=== PATIENT | female | born 1970 | race Caucasian/White ===

== ENCOUNTER → 2018-07-06 | Outpatient (CLI) | payer OTHER, BC ==
[~2018-07-06] MED LIST: FLUO-202 PO; LOR5/325 PO; NOR5/325 PO; PENI-22 PO
--- NOTE | 2018-07-20 16:34 | RADIOLOGY IMAGING REPORT ---
FACILITY: [facility] - [place] PATIENT NAME: CHASTITY MARTINEZ : [id number] MR: [id number] V: [id number] EXAM DATE: ORDERING PHYSICIAN: AMY BRUNER TECHNOLOGIST: García Miranda RDMS, RDCS PROCEDURE:US BILATERAL BREAST COMPARISON:None. INDICATIONS:BILATERAL BREAST LUMPS/Mammogram demonstrating partially obscured masses in both breasts. FINDINGS: The Right breast demonstrates multiple anechoic lesions, the largest measuring over 3cm in greatest dimension. Several of the lesions are subcentimeter in size. The breast also demonstrates anechoic lesions with internal debris. The largest of these measures approximately 1.5cm. There is a hypoechoic lesions measuring 4mm in size. There is also a hypoechoic lesion with through transmission likely representing a complex cyst measuring 4mm. The Left breast demonstrates anechoic lesions of varying sizes form subcentimeter up to 1.4cm. Several of these lesions have internal debris & are compatible with complex cysts. None of the lesions have increased vascularity. DIAGNOSTIC CATEGORY 2--BENIGN FINDING. BILATERAL CYSTS OF VARYING SIZE AND COMPLEXITY RECOMMENDATIONS: ROUTINE YEARLY SCREENING MAMMOGRAM AND CLINICAL EVALUATION. IMPRESSION: BIRADS 2: Benign finding The Ultrasound confirmed that the multiple partially obscured masses in both breasts corresponded to either simple or somewhat debris laden cysts in both breasts of varying sizes from subcentimeter up to 3cm in size. Dictated by: Ap Mae M.D. on 07/06/2018 at 15:55 Transcribed by: LEONARD on 07/06/2018 at 16:07 Approved by: Ap Mae M.D. on 07/06/2018 at 16:19 [facility]
--- NOTE | 2018-07-20 16:35 | RADIOLOGY IMAGING REPORT ---
FACILITY: [facility] PATIENT NAME: CHASTITY MARTINEZ : [id number] MR: [id number] V: [id number] EXAM DATE: ORDERING PHYSICIAN: AMY BRUNER TECHNOLOGIST: Evelyn Elena PROCEDURE:BILATERAL DIAGNOSTIC DIGITAL MAMMOGRAM WITH CAD ASSISTED INTERPRETATION & 3D TOMOSYNTHESIS COMPARISON:None. INDICATIONS:BILATERAL BREAST LUMPS FINDINGS: Breast tissue is heterogeneously dense which could obscure small masses. The study demonstrates multiple partially circumscribed partially obscured masses of varying sizes up to 2cm more prominent & larger in the Right breast than the Left. There are benign appearing punctate coarse calcifications in both breasts. No architectural distortions or clusters of suspicious microcalcifications. DIAGNOSTIC CATEGORY 0--INCOMPLETE: NEED ADDITIONAL IMAGING EVALUATION. RECOMMENDATIONS: ULTRASOUND OF BOTH BREASTS IMPRESSION: BIRADS 0: Incomplete, need additional imaging evaluation Multiple bilateral partially obscured masses. Recommend Ultrasound of both breasts for complete evaluation. Dictated by: Ap Mae M.D. on 07/06/2018 at 15:45 Transcribed by: LEONARD on 07/06/2018 at 15:54 Approved by: Ap Mae M.D. on 07/06/2018 at 16:17 [facility]
== END ==
LOC: MAMO 03:07
PROVIDERS: ATTEND Obstetrics & Gynecology
DX: R92.2 Inconclusive mammogram (principal); N60.11 Diffuse cystic mastopathy of right breast; N60.12 Diffuse cystic mastopathy of left breast
CPT/HCPCS: 77062; 77066